=== PATIENT | male | born 1990 | race Caucasian/White ===

== ENCOUNTER 2019-06-18 08:49 | Emergency (ER) | payer MEDICAID ==
[~2019-06-18] VITALS: Ht 177.8 cm; Wt 104.3 kg
--- NOTE | 2019-06-18 08:50 | NUR ---
Patient to ER bed 06 to gown for evaluation. Side rails up.
[2019-06-18 08:52] VITALS: BP_SYST 118
--- NOTE | 2019-06-18 08:52 | NUR ---
Pt brought by self, A&Ox4, pt presents to ER with R lower back pain, pt denies trauma, denies urinary symptoms, no N/V, skin pink and warm, cap refill <3, VSS.
[2019-06-18 09:01] VITALS: BP_SYST 145
--- NOTE | 2019-06-18 09:10 | NUR ---
Dr Ashby at bedside examining patient
[2019-06-18] MEDS ORDERED: KETOROLAC TROMETHAMINE 60 MG/2 ML VIAL IM ONE (09:30)
[2019-06-18] MEDS ORDERED: IBUPROFEN 600 MG TABLET PO ONE (09:45)
[2019-06-18 10:14] VITALS: BP_SYST 145
--- NOTE | 2019-06-18 10:19 | NUR ---
Patient given written and verbal discharge instructions and verbalizes understanding. ER MD discussed with patient the results and treatment provided. Patient in stable condition. ID arm band removed. Rx of Tramadol and Motrin given. Patient educated on pain management and to follow up with PMD. Pain Scale 3/10 tolerable for patient . Opportunity for questions provided and answered. Medication side effect fact sheet provided.
== END 2019-06-18 10:19 | disposition home or self-care (01) ==
LOC: SED 08:49
DX: M54.5 Low back pain (principal); R03.0 Elevated blood-pressure reading, without diagnosis of hypertension
CPT/HCPCS: 81002; 99283; J1885